=== PATIENT | female | born 1945 | race Caucasian/White ===

== ENCOUNTER 2019-06-02 13:18 | Outpatient (CLI) | payer OTHER | END 2019-06-02 13:28 | disposition home or self-care (01) | LOC: MAMO-SONO 13:18 | DX: Z12.31 Encounter for screening mammogram for malignant neoplasm of breast (principal); Z87.898 Personal history of other specified conditions; Z12.39 Encounter for other screening for malignant neoplasm of breast; R92.8 Other abnormal and inconclusive findings on diagnostic imaging of breast ==

== ENCOUNTER 2020-01-24 08:17 | Outpatient (CLI) | payer OTHER | END 2020-01-24 08:37 | disposition home or self-care (01) | LOC: RAD 08:17 | PROVIDERS: ATTEND Psychiatry & Neurology Neurology | DX: G40.209 Localization-related (focal) (partial) symptomatic epilepsy and epileptic syndromes with complex partial seizures, not intractable, without status epilepticus (principal); R31.29 Other microscopic hematuria ==

== ENCOUNTER 2020-07-25 08:38 | Outpatient (CLI) | payer OTHER | END 2020-07-25 09:32 | disposition home or self-care (01) | LOC: SONOGRAMA 08:38 | PROVIDERS: ATTEND Internal Medicine Gastroenterology | DX: Q61.02 Congenital multiple renal cysts (principal); R16.0 Hepatomegaly, not elsewhere classified; R19.4 Change in bowel habit; K80.00 Calculus of gallbladder with acute cholecystitis without obstruction ==

== ENCOUNTER 2020-09-17 13:25 | Outpatient (CLI) | payer OTHER ==
[2020-09-18] MEDS ORDERED: TOPROL XL25 M1 PO (11:18)
== END 2020-09-17 13:33 | disposition home or self-care (01) ==
LOC: LAB 13:25
PROVIDERS: ATTEND Surgery
DX: Z03.818 Encounter for observation for suspected exposure to other biological agents ruled out (principal); K64.2 Third degree hemorrhoids; K62.5 Hemorrhage of anus and rectum; K62.89 Other specified diseases of anus and rectum

== ENCOUNTER 2020-09-21 06:51 | Day surgery (SDC) | payer OTHER ==
[~2020-09-21 06:51] MED LIST: TOPROL XL25 M1 PO
== END 2020-09-21 16:30 | disposition home or self-care (01) ==
LOC: CIR.AMB 06:51
PROVIDERS: ATTEND Surgery
DX: C21.1 Malignant neoplasm of anal canal (principal); K64.8 Other hemorrhoids; K64.4 Residual hemorrhoidal skin tags; Z20.822 Contact with and (suspected) exposure to COVID-19

== ENCOUNTER 2020-10-11 08:05 | Outpatient (CLI) | payer OTHER | END 2020-10-11 08:21 | disposition home or self-care (01) | LOC: TOM 08:05 | PROVIDERS: ATTEND Surgery | DX: C21.1 Malignant neoplasm of anal canal (principal) | CPT/HCPCS: 71260; 74177; Q9965 ==

== ENCOUNTER 2020-10-17 05:58 | Day surgery (SDC) | payer OTHER | END 2020-10-17 12:00 | disposition home or self-care (01) | LOC: AMB-ENDOS 05:58 | PROVIDERS: ATTEND Surgery | DX: K62.89 Other specified diseases of anus and rectum (principal); Z20.822 Contact with and (suspected) exposure to COVID-19; Z12.11 Encounter for screening for malignant neoplasm of colon ==

== ENCOUNTER 2020-11-09 06:03 | Day surgery (SDC) | payer OTHER | END 2020-11-09 11:10 | disposition home or self-care (01) | LOC: CIR.AMB 06:03 | PROVIDERS: ATTEND Surgery | DX: C21.0 Malignant neoplasm of anus, unspecified (principal); Z20.822 Contact with and (suspected) exposure to COVID-19 | CPT/HCPCS: 36561; C1751 ==

== ENCOUNTER 2021-06-05 06:05 | Day surgery (SDC) | payer OTHER | END 2021-06-05 10:30 | disposition home or self-care (01) | LOC: AMB-ENDOS 06:05 | PROVIDERS: ATTEND Surgery | DX: K62.89 Other specified diseases of anus and rectum (principal); Z20.822 Contact with and (suspected) exposure to COVID-19 ==

== ENCOUNTER → 2021-11-01 | Outpatient (CLI) | payer OTHER | END | disposition home or self-care (01) | LOC: NUCLEAR 13:45 | PROVIDERS: ATTEND Specialist | DX: M85.89 Other specified disorders of bone density and structure, multiple sites (principal) ==

== ENCOUNTER 2021-11-11 09:51 | Outpatient (CLI) | payer OTHER | END 2021-11-11 09:52 | disposition home or self-care (01) | LOC: MAMO-SONO 09:51 | PROVIDERS: ATTEND Specialist | DX: Z12.31 Encounter for screening mammogram for malignant neoplasm of breast (principal); N63.0 Unspecified lump in unspecified breast ==

== ENCOUNTER 2023-04-07 08:38 | Outpatient (CLI) | payer OTHER | END 2023-04-07 08:43 | disposition home or self-care (01) | LOC: MAMO-SONO 08:38 | PROVIDERS: ATTEND Specialist | DX: Z12.31 Encounter for screening mammogram for malignant neoplasm of breast (principal); N63.0 Unspecified lump in unspecified breast ==

== ENCOUNTER → 2024-06-23 | Outpatient (CLI) | payer OTHER | END | disposition home or self-care (01) | LOC: MAMO-SONO 08:20 | PROVIDERS: ATTEND Internal Medicine | DX: N60.11 Diffuse cystic mastopathy of right breast (principal); N60.12 Diffuse cystic mastopathy of left breast; Z12.31 Encounter for screening mammogram for malignant neoplasm of breast ==

== ENCOUNTER 2025-06-28 13:33 | Outpatient (CLI) | payer OTHER | END 2025-06-28 13:36 | disposition home or self-care (01) | LOC: RAD 13:33 | PROVIDERS: ATTEND Otolaryngology Otology & Neurotology | DX: M54.2 Cervicalgia (principal) ==